=== PATIENT | male | born 1990 | race Caucasian/White ===

== ENCOUNTER 2018-07-30 08:59 | Emergency (ER) | payer OTHER, SELFPAY ==
[2018-07-30 08:59] VITALS: BP 142/79; PULSE 71; RESP 18; TEMP 36.4; O2SAT 98; BMI 26.2
--- NOTE | 2018-07-30 09:08 | RAD_ITS ---
STUDY: X-RAY - LEFT WRIST REASON FOR EXAM: Male, 27 years old. Pain and deformity following injury. TECHNIQUE: 3 view(s) of the wrist were obtained. COMPARISON: None. FINDINGS: Comminuted transverse fracture of the distal radial metaphysis with ventral displacement of the distal fracture fragment. Normal radiocarpal articulation. Normal distal radioulnar articulation. Normal carpal bones. Normal carpal articulations. Normal carpometacarpal articulation of the thumb. Normal second through fifth carpometacarpal articulations. Normal visualized metacarpal bones. Soft tissue swelling. RAD/Wrist min 3 Views IMPRESSION: Comminuted transverse fracture of the distal radial metaphysis with ventral displacement of the distal fracture fragment. Electronically Signed: Juno Castro, at 9:25 EDT , Service support ,
--- NOTE | 2018-07-30 09:08 | ED.VISSUMM ---
- ER Visit Summary Date of Service: 07/30/18 Chief Complaint: Left wrist pain History of Present Illness: The patient is a 27 M who fell off the skateboard injuring his left wrist. No head injury, no neck pain he denies any other injury. Tetanus is not up-to-date Physical Examination: Otherwise unremarkable exam no C-spine tenderness clear lungs bilaterally regular rate and rhythm. He is able to ambulate well his wrist examination reveals tenderness over the dorsum of the wrist, there is slight edema. There are few abrasions in that region. Normal strength and sensation no digit or hand pain. Emergency Department Course and Treatment: Patient is found to have a distal radius fracture and dislocation that is volarly dislocated. It is intra-articular. I discussed the patient with Dr. Canales who said is available to do surgery if needed however he also wanted to refer to [facility] and let the patient decide. I will give him both phone numbers. Patient will be discharged with analgesia, and AP Ortho-Glass splint was placed by me. Disposition: Discharged stable condition Impression: Left wrist fracture This note was generated with [employer] dictation software. It may contain incorrect words, spelling, and punctuation that were not noted in review of the chart prior to signing ED Disposition - Plan for ED Patient: Disposition: Home or Assisted Living Instructions: ED Fx Wrist General Prescriptions: Oxycodone HCl/Acetaminophen [Percocet 5/325] 1 tab PO Q6H PRN PRN 3 Days #20 tab PRN Reason: Pain Referrals: Bruno Canales MD [STAFF PHYSICIAN] - 1 Day Additional Instructions: [facility] orthopedics [address] [place] [address] [address], [place] [address]
--- NOTE | 2018-07-30 09:14 | ED.DCSUM_ITS ---
- ER Visit Summary Date of Service: 07/30/18 Chief Complaint: Left wrist pain History of Present Illness: The patient is a 27 M who fell off the skateboard injuring his left wrist. No head injury, no neck pain he denies any other injury. Tetanus is not up-to-date Physical Examination: Otherwise unremarkable exam no C-spine tenderness clear lungs bilaterally regular rate and rhythm. He is able to ambulate well his wrist examination reveals tenderness over the dorsum of the wrist, there is slight edema. There are few abrasions in that region. Normal strength and sensation no digit or hand pain. Emergency Department Course and Treatment: Patient is found to have a distal radius fracture and dislocation that is volarly dislocated. It is intra- articular. I discussed the patient with Dr. Canales who said is available to do surgery if needed however he also wanted to refer to [facility] and let the patient decide. I will give him both phone numbers. Patient will be discharged with analgesia, and AP Ortho-Glass splint was placed by me. Disposition: Discharged stable condition Impression: Left wrist fracture This note was generated with [employer] dictation software. It may contain incorrect words, spelling, and punctuation that were not noted in review of the chart prior to signing ED Disposition - Plan for ED Patient: Disposition: Home or Assisted Living Instructions: ED Fx Wrist General Prescriptions: Oxycodone HCl/Acetaminophen [Percocet 5/325] 1 tab PO Q6H PRN PRN 3 Days #20 tab PRN Reason: Pain Referrals: Bruno Canales MD [STAFF PHYSICIAN] - 1 Day Additional Instructions: [facility] orthoped[facility] [address] [place] [address] [id number], [place] [address]
[2018-07-30] MEDS: Diphth,Pertuss(Acell),Tet Vac 0.5 ML Vial IM (09:23)
== END 2018-07-30 10:20 | disposition home or self-care (01) ==
PROVIDERS: Emergency Provider Emergency Medicine
DX: S52.572A Other intraarticular fracture of lower end of left radius, initial encounter for closed fracture (principal); V00.131A Fall from skateboard, initial encounter; Y93.51 Activity, roller skating (inline) and skateboarding; Y92.9 Unspecified place or not applicable; Y99.8 Other external cause status
CPT/HCPCS: 29125; 73110; 99282